=== PATIENT | male | born 1935 | race Caucasian/White ===

== ENCOUNTER → 2018-10-08 | Day surgery (SDC) | payer MEDICARE, BC ==
[~2018-10-08] MED LIST: GLIM4TAB2 PO; IV RINGERS,LACTATED 1000ML 1,000 ML IV SCH; LIDOCAINE 1% PF 2 ML VIAL. ID PRN; LIDOCAINE 2% PF 5 ML VIAL. ONE; MIDAZOLAM HCL/PF 2 MG/2 ML VIAL. IV PRN; PROPOFOL 40 ML IV ONE; SITA100T PO; fentaNYL PF VIAL 100 MCG/2 ML VIAL IV PRN
[2018-10-08 09:24] VITALS: BP 126/70
--- NOTE | 2018-10-09 16:06 | PATHOLOGY ---
[facility] Accession Number: [id number] . 01 Material submitted: . colon - RANDOM COLON. Modifiers: RANDOM . 01 Clinical history: . Chronic diarrhea . 02 Diagnosis: Colonic mucosa, random colon biopsies: - No significant pathologic abnormalities. . (JPM:mm; 10/09/2018) [facility]/10/09/2018 . 02 Comment: Sections of the random colon biopsy reveal multiple segments of colonic mucosa containing several small mucosal-associated lymphoid aggregates. There is no evidence of a chronic destructive colitis, lymphocytic colitis, or collagenous colitis. . (JPM:mml; 10/09/2018) . 02 Electronically signed: . Mina Haywood MD, Pathologist NPI- [id number] . 01 Gross description: . The specimen is received in formalin, labeled "Jeffrey Neri, random colon biopsies" and consists of multiple fragments of martinez tissue measuring 1.5 x 0.9 x 0.3 cm in aggregate which are entirely submitted in A1. (SDY; 10/08/2018) SYU/SYU . 02 Pathologist provided ICD-10: K52.9 . 02 CPT . 049122 Specimen Comment: A courtesy copy of this report has been sent to Specimen Comment: [phone], . Specimen Comment: Report sent to / DR SALINAS Performed at: 01 [facility] [address], [place] [id number] MD Berto Rich MD Phone: [phone] Performed at: 02 [facility] [address], [place] [id number] MD Mina Haywood MD Phone: [phone]
== END ==
LOC: SURG 07:32
PROVIDERS: ATTEND Internal Medicine Gastroenterology
DX: K52.9 Noninfective gastroenteritis and colitis, unspecified (principal); K64.0 First degree hemorrhoids; F15.90 Other stimulant use, unspecified, uncomplicated; Z98.52 Vasectomy status; Z98.890 Other specified postprocedural states
CPT/HCPCS: 45380; 88305; J2001; J2704